=== PATIENT | male | born 1995 | race Two or more races ===

== ENCOUNTER 2022-03-31 12:09 | Emergency (ER) | payer MEDICAID, SELFPAY ==
[2022-03-31 13:33] VITALS: BP 139/68; PULSE 90; RESP 16; O2SAT 100; BMI 21.5
[2022-03-31] MEDS: Ondansetron ODT 4 MG TAB.RAPDIS TRANSLINGU (13:38)
[2022-03-31 14:16] LABS: MANUAL DIFF FLAG NO
[2022-03-31 14:32] LABS: Alanine Aminotransferase 9 U/L (0-40); Albumin Level 4.7 g/dL (3.5-5.0); Alkaline Phosphatase 77 U/L (39-117); Anion Gap 11 (12-20); Aspartate Amino Transferase 14 U/L (5-37); Bilirubin Direct 0.2 mg/dL (0.0-0.5); Bilirubin Total 0.4 mg/dL (0.0-1.0); Blood Urea Nitrogen 11 mg/dL (9-16); Calcium 9.6 mg/dL (8.4-10.2); Carbon Dioxide 29 mmol/L (22-29); Chloride 101 mmol/L (96-108); Creatinine Clr Calc Pharmacy 83.4; Estimated Glomerular Filt Rate > 60; Glucose Random 72 mg/dL (60-115); Potassium 4.1 mmol/L (3.3-5.1); Sodium 137 mmol/L (135-145); Total Protein 8.7 g/dL (6.5-8.0)
[2022-03-31 14:45] LABS: Basophils Percent Auto 0.4 % (0-2); Eosinophils Percent Auto 0.2 % (0-4); Hematocrit 43.9 % (42.0-52.0); Hemoglobin 15.3 g/dl (14.0-18.0); Imm Gran Abs Auto 0.01 X10*3/uL (0.00-0.03); Imm Gran Pct Auto 0.2 % (0.0-0.4); Lymphocytes Absolute Auto 0.6 X10*3/uL (1.2-4.9); Lymphocytes Percent Auto 11.7 % (20-40); Mean Corpuscular HGB Conc 34.9 g/dl (31.0-36.0); Mean Corpuscular Hemoglobin 31.9 pg (27.0-33.0); Mean Corpuscular Volume 91.5 fL (80.0-98.0); Mean Platelet Volume 11.2 fL (9.4-12.4); Monocytes Absolute Auto 0.9 X10*3/uL (0.1-1.2); Monocytes Percent Auto 17.7 % (2-11); Neutrophils Absolute Auto 3.6 x10*3/uL (2.0-8.3); Neutrophils Percent Auto 69.8 % (45-73); Platelet Count 123 X10*3/uL (160-400); Red Cell Distribution Width 12.1 % (11.0-16.0); White Blood Count 5.2 X10*3/uL (4.8-10.8)
[2022-03-31 16:08] LABS: COVID-19 Test Negative (Negative); IDNOW Serial# 08D9AD1C; Influenza A Positive (Negative); Influenza B2 Negative (Negative)
--- NOTE | 2022-03-31 16:25 | ED_ITS ---
HPI - Nausea/Vomiting/Diarrhea General Chief complaint: Nausea/Vomiting/Diarrhea Stated complaint: weakness, vomiting Time Seen by Provider: 03/31/22 15:33 Source: patient Mode of arrival: ambulatory Limitations: no limitations History of Present Illness HPI Narrative: Patient presents emergency department for evaluation of nausea and vomiting with body aches since yesterday. Denies any known sick contacts. Has not been vaccinated for COVID-19 or influenza. Denies fevers, chills, nasal congestion, sore throat, chest pain palpitations, shortness of breath difficulty breathing, abdominal pain, diarrhea, constipation, dysuria, urinary frequency, or generalized weakness. MD elicited complaint: nausea and vomiting Onset (ago): day(s) Description of vomiting: food contents Associated nausea: Yes Associated abdominal pain: No Related Data Previous Rx's Medication Instructions Recorded ondansetron 4 mg disintegrating 4 mg PO Q8H PRN #14 tab 03/31/22 tablet oseltamivir 75 mg capsule (Tamiflu) 75 mg PO Q12H 5 Days #10 cap 03/31/22 Allergies Allergy/AdvReac Type Severity Reaction Status Date / Time seafood Allergy Rash Verified 03/31/22 13:31 Review of Systems Review of Systems: Constitutional: No weight loss, fever, chills, weakness or fatigue. Skin: No rash or itching. Cardiovascular: No chest pain, chest pressure or chest discomfort. No palpitations Respiratory: No shortness of breath, cough or sputum production. Gastrointestinal: Positive loss of appetite. Positive nausea. Positive vo miting. No diarrhea. No constipation. No abdominal pain or blood in stool. Genitourinary: No burning micturition. No urinary frequency or incontinence. Musculoskeletal: No muscle pain, back pain, joint pain or stiffness. Yes all other systems are reviewed and are negative Gastrointestinal: Gastrointestinal: Reports nausea PMFSH Past Medical History Attestation statement: The following information was validated with the patient. Source: old records reviewed Social History Social History Advance Directives: No Advance Directives Information Provided: No Physical Exam Vital Signs: Vital Signs: Last Vital Signs Temp 98.4 F 03/31/22 16:34 Pulse 90 03/31/22 13:33 Resp 16 03/31/22 13:33 BP 139/68 03/31/22 13:33 Pulse Ox 100 03/31/22 13:33 BMI result Body Mass Index 21.5 Vital signs have been reviewed as normal and appeared to be correct. Blood pressure normal.? Heart rate normal.? Respiration rate normal. Temperature normal.? Oxygen saturation normal. Appearance: Alert.?Oriented to person, place and time. No acute distress.?Normal affect. Eyes: Pupils equal, round and reactive to light.? ENT: Pharynx normal.?? Neck: Normal inspection.? Neck supple.?? CVS: Heart sounds normal. Normal heart rate and rhythm.? Pulses normal.?? Respiratory: No respiratory distress.? Lung sounds clear to auscultation bilaterally?? Abdomen: Soft and non-tender. Normoactive bowel sounds. Skin: Skin warm and dry.? Normal skin color.? Extremities: No lower extremity edema.? Neuro: Moves all extremities spontaneously. Sensation intact bilaterally. No motor deficits. Ambulates with normal steady gait. Course Course Course Narrative: Patient is a 26-year-old male no significant medical history presenting for evaluation of vomiting and body aches. COVID-19 test is negative. Influenza a testing is positive. CBC and CMP are overall unremarkable. Patient received Zofran in triage, is now able to tolerate nitesh cam and crackers without vomiting. He is well-appearing, hemodynamically stable, no apparent distress. Not consistent with bowel obstruction, appendicitis, colitis, cholecystitis, pancreatitis. Discussed plan of care with patient for discharge home, offered Tamiflu and he accepted, provided new prescription for Zofran as well, Tylenol and ibuprofen to be used as needed for fever or pain, advised to follow-up with primary care provider as needed, return to the emergency department with any new or worsening symptoms or concerns MDM - Nausea/Vomiting/Diarrhea Medical Records Attestation: I reviewed the patient's medical records. Lab Data Attestation: I reviewed the patient's lab results. Result diagrams: 03/31/22 14:12 03/31/22 14:12 Labs: Lab Results 03/31/22 03/31/22 03/31/22 Range/Units 14:12 14:12 15:39 WBC 5.2 (4.8-10.8) X10*3/uL RBC 4.80 (4.60-5.80) X10*6/uL Hgb 15.3 (14.0-18.0) g/dl Hct 43.9 (42.0-52.0) % MCV 91.5 (80.0-98.0) fL MCH 31.9 (27.0-33.0) pg MCHC 34.9 (31.0-36.0) g/dl RDW 12.1 (11.0-16.0) % Plt Count 123 L (160-400) X10*3/uL MPV 11.2 (9.4-12.4) fL Immature Gran % (Auto) 0.2 (0.0-0.4) % Neut % (Auto) 69.8 (45-73) % Lymph % (Auto) 11.7 L (20-40) % [place] % (Auto) 17.7 H (2-11) % Eos % (Auto) 0.2 (0-4) % Baso % (Auto) 0.4 (0-2) % Lymph # (Auto) 0.6 L (1.2-4.9) X10*3/uL [place] # (Auto) 0.9 (0.1-1.2) X10*3/uL Eos # (Auto) 0.0 (0.0-0.4) X10*3/uL Baso # (Auto) 0.0 (0.0-0.2) X10*3/uL Abs Immat Gran (auto) 0.01 (0.00-0.03) X10*3/uL Absolute Neuts (auto) 3.6 (2.0-8.3) x10*3/uL Absolute Nucleated RBC 0.000 (0.0-0.012) X10*3/uL Nucleated RBC % (auto) 0.0 (0.0-0.2) /100WBC Sodium 137 (135-145) mmol/L Potassium 4.1 (3.3-5.1) mmol/L Chloride 101 (96-108) mmol/L Carbon Dioxide 29 (22-29) mmol/L Anion Gap 11 L (12-20) BUN 11 (9-16) mg/dL Creatinine 1.10 (0.5-1.4) mg/dL Estim Creat Clear Calc 83.4 Estimated GFR > 60 Random Glucose 72 (60-115) mg/dL Calcium 9.6 (8.4-10.2) mg/dL Total Bilirubin 0.4 (0.0-1.0) mg/dL Direct Bilirubin 0.2 (0.0-0.5) mg/dL AST 14 (5-37) U/L ALT 9 (0-40) U/L Alkaline Phosphatase 77 (39-117) U/L Total Protein 8.7 H (6.5-8.0) g/dL Albumin 4.7 (3.5-5.0) g/dL COVID-19 (JILLIAN) (Negative) COVID-19 Clin Com Influenza Type A (DAVID) Positive A (Negative) Influenza Type B (DAVID) Negative (Negative) Influenza A & B Note See Note 03/31/22 Range/Units 15:39 WBC (4.8-10.8) X10*3/uL RBC (4.60-5.80) X10*6/uL Hgb (14.0-18.0) g/dl Hct (42.0-52.0) % MCV (80.0-98.0) fL MCH (27.0-33.0) pg MCHC (31.0-36.0) g/dl RDW (11.0-16.0) % Plt Count (160-400) X10*3/uL MPV (9.4-12.4) fL Immature Gran % (Auto) (0.0-0.4) % Neut % (Auto) (45-73) % Lymph % (Auto) (20-40) % [place] % (Auto) (2-11) % Eos % (Auto) (0-4) % Baso % (Auto) (0-2) % Lymph # (Auto) (1.2-4.9) X10*3/uL [place] # (Auto) (0.1-1.2) X10*3/uL Eos # (Auto) (0.0-0.4) X10*3/uL Baso # (Auto) (0.0-0.2) X10*3/uL Abs Immat Gran (auto) (0.00-0.03) X10*3/uL Absolute Neuts (auto) (2.0-8.3) x10*3/uL Absolute Nucleated RBC (0.0-0.012) X10*3/uL Nucleated RBC % (auto) (0.0-0.2) /100WBC Sodium (135-145) mmol/L Potassium (3.3-5.1) mmol/L Chloride (96-108) mmol/L Carbon Dioxide (22-29) mmol/L Anion Gap (12-20) BUN (9-16) mg/dL Creatinine (0.5-1.4) mg/dL Estim Creat Clear Calc Estimated GFR Random Glucose (60-115) mg/dL Calcium (8.4-10.2) mg/dL Total Bilirubin (0.0-1.0) mg/dL Direct Bilirubin (0.0-0.5) mg/dL AST (5-37) U/L ALT (0-40) U/L Alkaline Phosphatase (39-117) U/L Total Protein (6.5-8.0) g/dL Albumin (3.5-5.0) g/dL COVID-19 (JILLIAN) Negative (Negative) COVID-19 Clin Com See Note Influenza Type A (DAVID) (Negative) Influenza Type B (DAVID) (Negative) Influenza A & B Note Discharge Plan Discharge Clinical Impression: Influenza A Patient Disposition: Home, Self-Care Instructions: Influenza (ED) Additional Instructions: Be sure to rest, stay well hydrated drinking plenty of fluids, eat small frequent meals, bland diet. Tylenol/ibuprofen can be used as needed for fever/pain. You have been given a new prescription for Tamiflu take this twice a day. Given given a new prescription for Zofran to use as needed for nausea. You may return to the emergency department with any new or worsening symptoms or concerns. Follow-up with your primary care provider as needed. Should remain out of school/ work until symptoms have resolved and have been without a fever for 24 hours without the use of Tylenol or ibuprofen. Prescriptions: New ondansetron 4 mg tablet,disintegrating 4 mg PO Q8H PRN (Reason: nausea and vomiting) Qty: 14 0RF oseltamivir [Tamiflu] 75 mg capsule 75 mg PO Q12H 5 Days Qty: 10 0RF Interventions: ED Discharge Assessment Last Done: 03/31/22 16:57 Discharge Date/Time: 03/31/22 16:59
[2022-03-31 16:34] VITALS: TEMP 36.9
== END 2022-03-31 16:59 | disposition home or self-care (01) ==
PROVIDERS: Physician Assistant; Emergency Provider Emergency Medicine
DX: J10.1 Influenza due to other identified influenza virus with other respiratory manifestations (principal); Z20.822 Contact with and (suspected) exposure to COVID-19
CPT/HCPCS: 36415; 80048; 80076; 85025; 87502; 87635; 99282; 99283

== ENCOUNTER 2022-07-13 19:49 | Emergency (ER) | payer MEDICAID, SELFPAY ==
--- NOTE | ~2022-07-13 | XR_ITS ---
EXAMINATION: XR ANKLE, RIGHT CLINICAL INFORMATION: Fall with deformity COMPARISON: None TECHNIQUE: AP, lateral, and mortise views of the right ankle. FINDINGS: Small bone fragment adjacent to the distal tip of the medial malleolus compatible with an avulsion fracture, acuity uncertain. No other fracture or dislocation. Ankle mortise is congruent and intact. No ankle joint effusion. Ankle and subtalar joint spaces are maintained XR/XR ankle RT min 3V IMPRESSION: 1. Small bone fragment adjacent to the distal tip of the medial malleolus compatible with a small avulsion fracture, acuity uncertain. 2. No additional fracture or dislocation. 3. Soft tissue swelling overlying the lateral malleolus. No ankle joint effusion.
[2022-07-13 20:02] VITALS: BP 128/78; PULSE 84
[2022-07-13 20:11] VITALS: BP 105/77; PULSE 67; RESP 16; TEMP 36.9; O2SAT 100; BMI 18.3
[2022-07-13 22:15] VITALS: BP 124/70; PULSE 52; RESP 14; TEMP 37; O2SAT 100
--- NOTE | 2022-07-14 00:23 | ED.LOWEXIN ---
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 Patient reports pain with weight-bearing. He denies any associated weakness, numbness or tingling. Patient does report ankle injury to the right side 1 year ago. He tells me he did go to the emergency room and had some x-rays but he never saw the provider and did not know the results of the x-ray. Related Data Previous Rx's Medication Instructions Recorded ondansetron 4 mg disintegrating 4 mg PO Q8H PRN nausea and 03/31/22 tablet vomiting #14 tabs oseltamivir 75 mg capsule (Tamiflu) 75 mg PO Q12H 5 days #10 caps 03/31/22 Allergies Allergy/AdvReac Type Severity Reaction Status Date / Time seafood Allergy Rash Verified 03/31/22 13:31 Review of Systems Review of Systems: Yes all other systems are reviewed and are negative Constitutional: Constitutional: Reports no additional constitutional complaints, Denies body ache(s), Denies chills, Denies fever(s), Denies headache(s) and Denies weakness Eyes: Eyes: Reports no additional eye complaints and Denies change in vision ENT: Reports system reviewed and no additional complaints, except as documented, Denies dizziness, Denies headache(s), Denies nasal congestion, Denies nasal discharge and Denies neck pain Cardiovascular: Cardiovascular: Reports no additional cardiovascular complaints, Denies chest pain, Denies leg edema and Denies dyspnea Respiratory: Respiratory: Reports no additional respiratory complaints, Denies cough and Denies dyspnea Gastrointestinal: Gastrointestinal: Reports no additional gastrointestinal complaints, Denies abdominal pain, Denies diarrhea, Denies nausea and Denies vomiting Genitourinary: Genitourinary: Denies urinary incontinence Musculoskeletal: Musculoskeletal: Reports no additional musculoskeletal complaints, Denies back pain, Reports arthralgias, Reports joint swelling, Denies neck pain, Denies numbness and Denies tingling Integumentary/Breasts: Skin/Breast: Reports system reviewed and no additional complaints, except as docu and Denies rash Neurologic: Reports system reviewed and no additional complaints, except as documented, Denies dizziness, Denies headache(s), Denies numbness, Denies tingling and Denies weakness PMFSH Past Medical History Attestation statement: The following information was validated with the patient. Source: old records reviewed and nursing notes reviewed Physical Exam Vital Signs: Vital Signs: Last Vital Signs Temp 98.6 F 07/13/22 22:15 Pulse 52 07/13/22 22:15 Resp 14 07/13/22 22:15 BP 124/70 07/13/22 22:15 Pulse Ox 100 07/13/22 22:15 O2 Del Method 07/13/22 22:15 BMI result Body Mass Index 18.3 Extrem: Other: There is tenderness over the anterior, medial and lateral right ankle with swelling. Palpable DP and PT pulses. Limited range of motion due to pain. No posterior ankle pain. Course Course Course Narrative: X-ray show 1. Small bone fragment adjacent to the distal tip of the medial malleolus compatible with a small avulsion fracture, acuity uncertain. 2. No additional fracture or dislocation. 3. Soft tissue swelling overlying the lateral malleolus. No ankle joint effusion. -patient does report injury to same ankle 1 year ago and never was seen provider, this medial malleolus fracture may be acute or chronic. Patient will be placed in an air cast and given crutches. We reviewed rice. Will refer him to Orthopedics for follow-up. Reviewed worrisome signs and symptoms of when to return to the emergency department. Comfortable discharge home. MDM - Extremity Injury (Lower) MDM Narrative Medical decision making narrative: 26-year-old male here with inversion injury to the right ankle. Will check x-rays Medical Records Attestation: I reviewed the patient's medical records. Lab Data Attestation: I reviewed the patient's lab results. Imaging Data ankle xray: Attestation: I personally reviewed and interpreted this imaging study as follows: Radiologist's impression: [address] [address] XRay Report Signed Patient: Kiran Leung MR#: [id number] : 1995 Acct:[id number] Age/Sex: 26 / M ADM Date: 07/13/22 Loc: HO.ED Attending Dr: Ordering Physician: Generic ED Physician Date of Service: 07/13/22 Procedure(s): XR ankle RT min 3V Accession Number(s): [id number] cc: Generic ED Physician~ EXAMINATION: XR ANKLE, RIGHT CLINICAL INFORMATION: Fall with deformity? COMPARISON: None? TECHNIQUE: AP, lateral, and mortise views of the right ankle. FINDINGS: Small bone fragment adjacent to the distal tip of the medial malleolus compatible with an avulsion fracture, acuity uncertain. No other fracture or dislocation. Ankle mortise is congruent and intact. No ankle joint effusion. Ankle and subtalar joint spaces are maintained? XR/XR ankle RT min 3V IMPRESSION: ? 1. Small bone fragment adjacent to the distal tip of the medial malleolus compatible with a small avulsion fracture, acuity uncertain. 2. No additional fracture or dislocation. 3. Soft tissue swelling overlying the lateral malleolus. No ankle joint effusion. Procedures Orthopedic Splinting/Casting Injury #1: Side: right Lower Extremity Injury Location: ankle Lower Extremity Immobilizer: AirCast Other Orthopedic Equipment: crutches Discharge Plan Discharge Clinical Impression: Avulsion fracture of medial malleolus Patient Disposition: Home, Self-Care Instructions: Ankle Fracture (ED) Additional Instructions: Use el Aircast y las muletas con estricto control de no soporte de peso. Elevar la pierna Aplicar hielo 20 minutos encendido 20 minutos apagado Llame ma?ting a [employer] para programar kelsey katie de seguimiento [place] ibuprofeno para el dolor seg?n sea necesario Prescriptions: No Action ondansetron 4 mg tablet,disintegrating 4 mg PO Q8H PRN (Reason: nausea and vomiting) Qty: 14 0RF oseltamivir [Tamiflu] 75 mg capsule 75 mg PO Q12H 5 Days Qty: 10 0RF [place] [facility] [place] [facility] [place] Group] Print Language: Mohawk
== END 2022-07-14 01:20 | disposition home or self-care (01) ==
PROVIDERS: Emergency Provider Internal Medicine
DX: S82.54XA Nondisplaced fracture of medial malleolus of right tibia, initial encounter for closed fracture (principal); X50.1XXA Overexertion from prolonged static or awkward postures, initial encounter; Y93.67 Activity, basketball; Y92.310 Basketball court as the place of occurrence of the external cause; Y99.9 Unspecified external cause status
CPT/HCPCS: 73610; 99282; 99283

== ENCOUNTER → 2022-07-27 14:36 | Outpatient (BNVA) | payer MEDICAID, SELFPAY | PROVIDERS: Visit Provider Physician Assistant | DX: S82.891A Other fracture of right lower leg, initial encounter for closed fracture (principal) | CPT/HCPCS: 99202 ==